=== PATIENT | male | born 1995 | race American Indian/Alaskan Native ===

== ENCOUNTER 2020-02-11 11:36 | Emergency (ER) | payer SELFPAY ==
[2020-02-11 11:55] VITALS: BP 122/67
[2020-02-11] MEDS ORDERED: KETOROLAC 10 MG TAB PO ONE (15:38)
[2020-02-11] MEDS ORDERED: DEXAMETHASONE 4 MG TAB PO ONE (15:38)
--- NOTE | 2020-02-11 15:45 | Emergency Department Report ---
ED General Adult HPI - General Chief complaint: Extremity Problem,Nontraumatic Stated complaint: RT/THIGH/BUTTOCK/ABD PAIN Time Seen by Provider: 02/11/20 14:23 Source: patient Mode of arrival: Ambulatory Limitations: No Limitations - History of Present Illness Initial comments: 24-year-old -English male patient presents with complaints of right buttock pain radiating down the right leg x4 days. Patient denies any specific injury or heavy lifting. He states the pain began after he said on his bottom for an extended period of time 4 days ago. He describes the pain as shooting and burning. He denies any prior history of sciatica, numbness/tingling/weakness in his limbs, loss of bladder/bowel control, difficulty moving his legs/ambulating, or history of cancer. Patient rates his current pain as a 9/10 in severity and denies trying any OTC medication for his pain. Pain worsens with sitting on his bottom. He also denies any leg swe lling, chest pain, or shortness of breath. - Related Data Previous Rx's Medication Instructions Recorded Last Taken Type Omeprazole [Prilosec] 20 mg PO QDAY #30 capsule. 03/27/13 Unknown Rx Ondansetron [Zofran] 4 mg PO Q6HR PRN #15 tablet 03/27/13 Unknown Rx Diclofenac Sodium 50 mg PO TID PRN #21 tablet. 02/11/20 Unknown Rx methOCARBAMOL [Robaxin TAB] 750 - 1,500 mg PO Q8H PRN #30 02/11/20 Unknown Rx tablet Allergies Allergy/AdvReac Type Severity Reaction Status Date / Time No Known Allergies Allergy Verified 03/26/13 23:58 ED Review of Systems ROS: Stated complaint: RT/THIGH/BUTTOCK/ABD PAIN Other details as noted in HPI Constitutional: denies: chills, diaphoresis, fever, malaise Respiratory: denies: cough, shortness of breath Gastrointestinal: denies: abdominal pain, nausea, vomiting, hematochezia Genitourinary: denies: urgency, dysuria, frequency, hematuria Musculoskeletal: back pain Neurological: denies: headache, numbness, paresthesias, abnormal gait ED Past Medical Hx - Past Medical History Previous Medical History?: No - Surgical History Past Surgical History?: No - Social History Smoking Status: Never Smoker Substance Use Type: None - Medications Home Medications: Home Medications Medication Instructions Recorded Confirmed Last Taken Type Omeprazole [Prilosec] 20 mg PO QDAY #30 capsule. 03/27/13 Unknown Rx Ondansetron [Zofran] 4 mg PO Q6HR PRN #15 tablet 03/27/13 Unknown Rx Diclofenac Sodium 50 mg PO TID PRN #21 tablet. 02/11/20 Unknown Rx methOCARBAMOL [Robaxin TAB] 750 - 1,500 mg PO Q8H PRN #30 02/11/20 Unknown Rx tablet ED Physical Exam - General Limitations: No Limitations General appearance: alert, in no apparent distress - Head Head exam: Present: atraumatic, normocephalic - Eye Eye exam: Present: normal appearance. Absent: scleral icterus - Respiratory Respiratory exam: Present: normal lung sounds bilaterally. Absent: respiratory distress - Cardiovascular Cardiovascular Exam: Present: regular rate - GI/Abdominal GI/Abdominal exam: Present: soft. Absent: distended, tenderness - Extremities Exam Extremities exam: Present: normal inspection, full ROM, other (Positive right straight leg raise test; tenderness to palpation noted over midportion of right buttock at the sciatic nerve site) - Back Exam Back exam: Present: normal inspection. Absent: vertebral tenderness - Neurological Exam Neurological exam: Present: alert, oriented X3, normal gait. Absent: motor sensory deficit - Expanded Neurological Exam Expanded Sensory exam: Lower Extremity Light Touch: Normal Motor strength exam: RUE: 5 - Psychiatric Psychiatric exam: Present: normal affect, normal mood - Skin Skin exam: Present: warm, dry, intact, normal color. Absent: rash ED Course Vital Signs 02/11/20 02/11/20 02/11/20 11:53 15:52 16:12 Temperature 98.0 F Pulse Rate 75 Respiratory 15 16 18 Rate Blood Pressure 122/67 O2 Sat by Pulse 100 Oximetry ED Medical Decision Making - Medical Decision Making 24-year-old -English male patient presents with complaints of right buttock pain radiating down the right leg x4 days. Patient denies any specific injury or heavy lifting. He states the pain began after he said on his bottom for an extended period of time 4 days ago. He describes the pain as shooting and burning. He denies any prior history of sciatica, numbness/tingling/weakness in his limbs, loss of bladder/bowel control, diffic ulty moving his legs/ambulating, or history of cancer. Patient rates his current pain as a 9/10 in severity and denies trying any OTC medication for his pain. Pain worsens with sitting on his bottom. He also denies any leg swelling, chest pain, or shortness of breath. Positive right straight leg raise test and tenderness to palpation noted over the right sciatic nerve in the right buttock. He denies any red flag symptoms. He is neurologically intact history and symptoms are consistent with sciatica. Conservative treatment with NSAIDs and muscle relaxers recommended with stretching. Recommend follow-up primary care in 3 to 5 days. Vitals are normal, patient is well-appearing, and he is stable for discharge home. Strict return precautions were discussed in detail with patient who verbalized understanding. Critical care attestation.: If time is entered above; I have spent that time in minutes in the direct care of this critically ill patient, excluding procedure time. ED Disposition Clinical Impression: Right sided sciatica Disposition: DC- TO HOME OR SELFCARE Is pt being admited?: No Condition: Stable Instructions: Sciatica (ED) Prescriptions: Diclofenac Sodium 50 mg PO TID PRN #21 tablet.dr SILVERIO Reason: pain methOCARBAMOL [Robaxin TAB] 750 - 1,500 mg PO Q8H PRN #30 tablet PRN Reason: Muscle spasm/tightness Referrals: PRIMARY CARE, [Primary Care Provider] - 3-5 Days
== END 2020-02-11 16:14 | disposition home or self-care (01) ==
LOC: ED 11:36
DX: M54.31 Sciatica, right side (principal); Z79.899 Other long term (current) drug therapy
CPT/HCPCS: 99282; J8540